=== PATIENT | male | born 2005 | race Hispanic/Latino ===

== ENCOUNTER 2025-02-05 15:34 | Emergency (ER) | payer OTHER ==
[~2025-02-05] VITALS: Ht 172.7 cm; Wt 81.6 kg
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
--- NOTE | 2025-02-05 17:00 | NUR ---
PT MOVED INTO INTERNAL WAITING AREA AT THIS TIME.
[2025-02-05] MEDS: CYCLOBENZAPRINE HCL 10 MG TABLET PO ONE (17:06)
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
[2025-02-05] MEDS ORDERED: IBUP-2077 PO (18:42)
[2025-02-05] MEDS ORDERED: CYCL-309 PO (18:42)
[2025-02-05 18:48] VITALS: BP 118/48; PULSE 68; RESP 16; TEMP 98.4; O2SAT 99
== END 2025-02-05 18:55 | disposition home or self-care (01) ==
LOC: EDH 15:34
DX: S16.1XXA Strain of muscle, fascia and tendon at neck level, initial encounter (principal); S39.012A Strain of muscle, fascia and tendon of lower back, initial encounter; V89.2XXA Person injured in unspecified motor-vehicle accident, traffic, initial encounter; Y93.89 Activity, other specified; Y92.89 Other specified places as the place of occurrence of the external cause; Y99.8 Other external cause status
CPT/HCPCS: 72040; 72100; 72131; 99284